=== PATIENT | female | born 1950 | race Caucasian/White ===

== ENCOUNTER 2018-02-10 20:34 | Inpatient (IN) | payer OTHER ==
[~2018-02-10] VITALS: Ht 167.6 cm; Wt 158.0 kg
[2018-02-10] MEDS ORDERED: VANCOMYCIN 1GM ED/ASU OMNICELL IV STA (20:59)
[2018-02-10] MEDS ORDERED: PIPERACILLIN/TAZOBACTAM 4.5 GM/100ML D5W IV STA (20:59)
[2018-02-10] MEDS ORDERED: SODIUM CHLORIDE 0.9% 1000ML 1,000 ML IV ONE (20:59)
--- NOTE | 2018-02-10 21:20 | EMERGENCY ROOM VISIT NOTE ---
History Report prepared by Franco: Lauren Del Rosario Under the Supervision of: Dr. Richardson Smith M.D. First contact with patient: 20:56 Chief Complaint: SHORTNESS OF BREATH Stated Complaint: sob, tachy chemo, anxious History of Present Illness The patient is a 67 year old black female with a past medical history of multiple myeloma, diabetes, pulmonary hypertension, PE on Xarelto who presents to the ED with a cc of persistent SOB beginning [employer]OUND[employer]IN[employer]. The patient presents to the ED by EMS. Positive vomiting, diaphoresis. Negative chest pain, cough, fever , chills. Patient was recently started on a new chemo drug. 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 A total of ten systems were reviewed and were otherwise negative. Past Medical & Surgical Medical Problems: (1) Chills (2) Diabetes (3) Multiple myeloma (4) Pulmonary embolism (5) Pulmonary hypertension (6) SOB (shortness of breath) Family History No pertinent family history stated. Social History Occupation Status: disabled Current/Historical Medications Scheduled Albuterol Hfa (Ventolin Hfa), 2-4 PUFFS INH Q6H Amlodipine (Norvasc), 5 MG PO DAILY Apixaban (Eliquis), 5 MG PO BID Bumetanide (Bumex), 2 MG PO BID Calcium Carbonate-Vitamin D (Calcium Plus Vitamin D), 1 CAP PO BID Dexamethasone (Decadron), 28 MG PO UD Elotuzumab (Empliciti), 1 DOSE IV UD Esomeprazole Magnesium (Nexium), 40 MG PO DAILY Ferrous Sulfate (Kp Ferrous Sulfate), 1 TAB PO TID Glipizide (Glipizide), 1 TAB PO DAILY Latanoprost (Xalatan 0.005% Oph Karen), 1 DROPS OP HS Lenalidomide (Revlimid), 25 MG PO UD Levothyroxine Sodium (Levothyroxine Sodium), 1 TAB PO DAILY Metolazone (Zaroxolyn), 2.5 MG PO DAILY Metoprolol Tartrate (Lopressor) (Lopressor), 25 MG PO BID Multiple Vitamins W/ Minerals (Womens 50+ Multi Vitamin), 1 TAB PO DAILY Potassium Ext Rel (Klor-Con), 20 MEQ PO BID Spironolactone (Aldactone), 25 MG PO DAILY Trazodone Hcl (Trazodone), 50 MG PO HS Miscellaneous Medications [Treatment Meds] Allergies Coded Allergies: Atorvastatin (Unverified Adverse Reaction, Severe, COUGH, 02/10/18) Lisinopril (Unverified Adverse Reaction, Severe, COUGH, 02/10/18) Physical Exam Vital Signs Date Time Temp Pulse Resp B/P (MAP) Pulse Ox O2 Delivery O2 Flow Rate FiO2 02/10/18 23:05 99 16 98 02/10/18 23:00 101/81 02/10/18 22:50 99 14 96 02/10/18 22:45 113/82 02/10/18 22:35 99 17 99 02/10/18 22:31 151/71 02/10/18 22:25 Room Air 02/10/18 22:20 99 25 99 02/10/18 22:19 100 26 98 02/10/18 22:17 108 02/10/18 22:16 163/107 02/10/18 22:11 149/76 02/10/18 21:39 97 Nasal Cannula 6.0 02/10/18 20:49 36.6 136 28 97/80 97 Nasal Cannula 6.0 Physical Exam GENERAL: Awake, alert, anxious in appearance, moderate distress HENT: Normocephalic, atraumatic. EYES: Normal conjunctiva. Sclera non-icteric. PERRL. No anisocoria. NECK: Supple. No nuchal rigidity. FROM. RESPIRATORY: Decreased breath sounds at the bases b/l, no rhonchi, wheezing, crackles CARDIAC: RRR, no MRG ABDOMEN: Soft, NTND, BS+ MSK: No chest wall TTP, no LE edema NEURO: GCS 15, CN 2-12 intact, moves all 4s on command SKIN: No rash or jaundice noted. Medical Decision & Procedures ER Provider Diagnostic Interpretation: Radiology results as stated below per my review and radiologist interpretation: CHEST ONE VIEW PORTABLE HISTORY: 67 years-old Female Sepsis acute sepsis COMPARISON: None available TECHNIQUE: Portable AP view of the chest FINDINGS: The patient is rotated to the left. Cardiac silhouette is enlarged. Right internal jugular Ctkhps-j-Sxls catheter is noted with distal tip projecting over the expected location of the right atrium. There is no pneumothorax or large pleural effusion. Mild pulmonary vascular congestion without overt pulmonary edema. Linear subsegmental left midlung and left basilar opacities suggest atelectasis. Degenerative changes of the shoulders and spine. IMPRESSION: 1. Cardiomegaly with mild pulmonary vascular congestion. 2. Linear subsegmental lateral left midlung and left basilar opacities suggest atelectasis. The above report was generated using voice recognition software. It may contain grammatical, syntax or spelling errors. Electronically signed by: Tereso Yang M.D. 02/10/2018 10:43 PM Dictated Date/Time: 02/10/2018 10:41 PM Laboratory Results Test 02/10/18 20:59 02/10/18 21:16 02/10/18 21:25 02/10/18 22:48 Creatine Kinase MB Ratio (0-3.0) Neutrophils % (Manual) 85.1 % Lymphocytes % (Manual) 7.9 % Monocytes % (Manual) 3.5 % Eosinophils % (Manual) 0.9 % Metamyelocytes % 2.6 % Neutrophils # (Manual) 9.80 K/uL (1.4-6.5) Total Absolute Neutrophils 9.80 K/uL (1.4-6.5) Lymphocytes # (Manual) 0.91 K/uL (1.2-3.4) Total Absolute Lymphocytes 0.91 K/uL (1.2-3.4) Monocytes # (Manual) 0.40 K/uL (0.11-0.59) Eosinophils # (Manual) 0.10 K/uL (0-0.5) Metamyelocytes # 0.30 K/uL (0-0) Prothrombin Time 10.8 SECONDS (9.0-12.0) Prothromb Time International Ratio 1.0 (0.9-1.1) Activated Partial Thromboplast Time 20.4 SECONDS (21.0-31.0) Partial Thromboplastin Ratio 0.8 Venous Blood pH 7.49 (7.36-7.41) Venous Blood Partial Pressure CO2 33 mmHg (38.0-50.0) Venous Blood Partial Pressure O2 29 mmHg Venous Blood HCO3 24 mmol/L Venous Blood Oxygen Saturation 60.7 % Venous Blood Base Excess 1.5 mEq/L Phosphorus Level 1.8 mg/dl (2.5-4.9) Total Bilirubin 0.4 mg/dl (0.2-1) Aspartate Amino Transf (AST/SGOT) 25 U/L (15-37) Alanine Aminotransferase (ALT/SGPT) 24 U/L (12-78) Alkaline Phosphatase 139 U/L (45-117) Creatine Kinase MB 0.9 ng/ml (0.5-3.6) Pro-B-Type Natriuretic Peptide 2937 pg/ml (0-900) Total Protein 7.1 gm/dl (6.4-8.2) Albumin 2.8 gm/dl (3.4-5.0) Globulin 4.3 gm/dl (2.5-4.0) Albumin/Globulin Ratio 0.6 (0.9-2) Procalcitonin 1.37 ng/ml (0-0.5) Bedside Hemoglobin 12.6 g/dl (12.0-16.0) Bedside Hematocrit 37 % (37-47) Bedside Sodium 140 mEq/L (135-144) Bedside Potassium 3.4 mEq/L (3.3-5.0) Bedside Chloride 100 mEq/L (101-112) Bedside Total CO2 23 mEq/l (24-31) Bedside Blood Urea Nitrogen 31 mg/dl (7-18) Bedside Creatinine 1.8 mg/dl (0.6-1.3) Bedside Glucose (other) 228 mg/dl (70-99) Bedside Ionized Calcium (Amrit) 1.10 mmol/l (1.12-1.32) Urine Color DK YELLOW Urine Appearance CLEAR (CLEAR) Urine pH 5.0 (4.5-7.5) Urine Specific [place] 1.022 (1.000-1.030) Urine Protein 1+ (NEG) Urine Glucose (UA) TRACE (NEG) Urine Ketones NEG (NEG) Urine Occult Blood NEG (NEG) Urine Nitrite POS (NEG) Urine Bilirubin NEG (NEG) Urine Urobilinogen NEG (NEG) Urine Leukocyte Esterase SMALL (NEG) Urine WBC (Auto) 10-30 /hpf (0-5) Urine RBC (Auto) 0-4 /hpf (0-4) Urine Hyaline Casts (Auto) 1-5 /lpf (0-5) Urine Epithelial Cells (Auto) 5-10 /lpf (0-5) Urine Bacteria (Auto) 4+ (NEG) Laboratory results reviewed by me Medications Administered Medications (Trade) Dose Ordered Sig/Tracy Route Start Time Stop Time Status Last Admin Dose Admin Sodium Chloride 1,000 ml @ 999 mls/hr Q1H1M ONCE IV 02/10/18 20:59 02/10/18 21:59 DC 02/10/18 21:06 999 MLS/HR Piperacillin Sod/ Tazobactam Sod (Zosyn Iv) 4.5 gm ONE STAT IV 02/10/18 20:59 02/10/18 21:02 DC 02/10/18 23:05 4.5 GM Magnesium Sulfate 100 ml @ 100 mls/hr NOW STAT IV 02/10/18 22:01 02/10/18 23:00 DC 02/10/18 22:40 100 MLS/HR Potassium Chloride 100 ml @ 100 mls/hr NOW STAT IV 02/10/18 22:04 02/10/18 23:03 DC 02/10/18 22:40 100 MLS/HR Potassium Phosphate 15 mmol/ Sodium Chloride 255 ml @ 88 mls/hr ONE STAT IV 02/10/18 22:06 02/11/18 00:59 DC 02/11/18 00:52 88 MLS/HR ECG Per My Interpretation Indication: SOB/dyspnea Rate (beats per minute): 110 Rhythm: sinus tachycardia Findings: RBBB, T-wave inversion (Anterior, Inferior), left axis deviation, other (wide QRS) Comparison ECG Date: no prior available ED Course 2056: The patient was evaluated in room C2B. A complete history and physical exam was performed. 2152: I reevaluated the patient. She appears better and is feeling better. I discussed the test results and treatment plan with her and family. The patient will be evaluated for further management. 2216: I [facility] the patient's [facility] The patient will be evaluated for further treatment and disposition. Medical Decision Nursing notes reviewed. Ancillary studies and prior records reviewed. The patient is a 67 year old black female with a past medical history of multiple myeloma, diabetes, pulmonary hypertension, PE on Xarelto who presents to the ED with a cc of persistent SOB beginning [employer]ATION [employer]IN[employer]. Differential diagnosis: Etiologies such as viral syndrome, otitis, pharyngitis, pneumonia, influenza, meningitis, urinary tract infection, sepsis, bacteremia, infections, reactive airway disease, pneumothorax, COPD, CHF, cardiac ischemia, pulmonary embolism, musculoskeletal, gastrointestinal, as well as others were entertained. Patient seen and evaluated at bedside. Patient tachy and in distress. Patient w / h/o of MM, DM. POC glucose > 200. Patient on 6Ls O2 maintaining sats > 98%. Patient intermittently answering questions. Always appropriate. Diaphoretic. Port accessed. Blood work obtained including blood/urine clx, Vanc/zosyn BS abx , IVF, VBG, LA, EKG, CXR. Established 18G in RAC via US. Initially POC BMP shows creat of 1.8 and normal bicarb. H/H ok. Daughter arrived at bedside. patient on diuretics and h/o of pulm HTN and PEs on NOAC. Patient EKG shows sinus tach w/ RBBB and TWI anteriorly. Patient denies CP. No prior EKGs for comparison. Additional labs show WBC 11K. Mild thrombocytopenia. IVF stopped after 500 ccs as patient had improvement in both HR and BP. Trop slightly elevated, BNP 2K, and LA > 5. UA pending but dip + for infection. Already given BS abx coverage. VBG shows hyperventilation, no CO2 retention. pH > 7.4. Multiple electrolyte derangements ordered repletement. I discussed case w/ respiratory care practitioner hospitalist to admit patient. Pending further reassessment by hospitalist but likely tele bed. Conveyed that patient feeling improved and VS also improved. ASA deferred at this time as pulm HTN and possible dehydration contributory to RBBB and +trop. Admitted to medicine service. Medication Reconcilliation Current Medication List: was personally reviewed by me Blood Pressure Screening Referred to hospitalist. Consults Time Called: [id number] Consulting Physician: Dr. Nuñez [facility] hospitalist Returned Call: [phone] Discussed the patient's case. The patient will be evaluated for further treatment and disposition. Impression Primary Impression: Pulmonary hypertension Additional Impressions: SOB (shortness of breath) Hypokalemia Hypomagnesemia Hypophosphatemia Elevated troponin Sepsis UTI (urinary tract infection) Critical Care I have personally spent greater than 48 minutes of critical care time in the direct management of this patient. This includes bedside care, interpretation of diagnostic studies, and testing, discussion with consultants, patient, and family members, and other required patient management activities. This 48 minutes is in excess of all separately billable procedures. Scribe Attestation The scribe's documentation has been prepared under my direction and personally reviewed by me in its entirety. I confirm that the note above accurately reflects all work, treatment, procedures, and medical decision making performed by me. Departure Information Dispostion Being Evaluated By Hospitalist Referrals No Doctor, Assigned (PCP) Patient Instructions [facility] Problem Qualifiers Additional Impressions: Sepsis Sepsis type: sepsis due to unspecified organism Qualified Codes: A41.9 - Sepsis, unspecified organism UTI (urinary tract infection) Urinary tract infection type: acute cystitis Hematuria presence: without hematuria Qualified Codes: N30.00 - Acute cystitis without hematuria
[2018-02-10 21:33] LABS: PTT PATIENT 20.4 SECONDS (21.0-31.0)
[2018-02-10 21:37] LABS: ISTAT CREATININE 1.8 mg/dl (0.6-1.3); ISTAT IONIZED CALCIUM 1.1 mmol/l (1.12-1.32); ISTAT POTASSIUM 3.4 mEq/L (3.3-5.0)
[2018-02-10 21:41] LABS: HEMATOCRIT 37.2 % (37-47); HEMOGLOBIN 11.9 g/dL (12.0-16.0); MEAN CELL VOLUME 78.6 fL (80-100); MEAN CORPUSCULAR HEMOGLOBIN 25.2 pg (25-34); RED CELL DISTRIBUTION WIDTH CV 16.9 % (11.5-14.5); RED CELL DISTRIBUTION WIDTH SD 48.4 fL (36.4-46.3); WHITE BLOOD COUNT 11.52 K/uL (4.8-10.8)
[2018-02-10 21:43] LABS: ALBUMIN 2.8 gm/dl (3.4-5.0); ALT/SGPT 24 U/L (12-78); AST/SGOT 25 U/L (15-37); BLOOD UREA NITROGEN 32 mg/dl (7-18); CALCIUM 8.6 mg/dl (8.5-10.1); CARBON DIOXIDE 24 mmol/L (21-32); GLUCOSE 216 mg/dl (70-99); POTASSIUM 3.4 mmol/L (3.5-5.1); SODIUM 140 mmol/L (136-145)
[2018-02-10 21:59] LABS: PLATELET COUNT 85 K/uL (130-400)
[2018-02-10 22:00] LABS: ALKALINE PHOSPHATASE 139 U/L (45-117); CKMB 0.9 ng/ml (0.5-3.6); PHOSPHORUS 1.8 mg/dl (2.5-4.9); TOTAL PROTEIN 7.1 gm/dl (6.4-8.2)
[2018-02-10] MEDS ORDERED: MAGNESIUM SULFATE 1GM / D5W 100 ML IV STA (22:01)
[2018-02-10] MEDS ORDERED: POTASSIUM PHOS 3 MMOL/1 ML INFUSION IV STA (22:01)
[2018-02-10] MEDS ORDERED: POTASSIUM CHLR 10 MEQ / WTR 100 ML IV STA (22:04)
--- NOTE | 2018-02-10 22:44 | DIAGNOSTIC IMAGING REPORT ---
CHEST ONE VIEW PORTABLE HISTORY: 67 years-old Female Sepsis acute sepsis COMPARISON: None available TECHNIQUE: Portable AP view of the chest FINDINGS: The patient is rotated to the left. Cardiac silhouette is enlarged. Right internal jugular Ltywcn-r-Grho catheter is noted with distal tip projecting over the expected location of the right atrium. There is no pneumothorax or large pleural effusion. Mild pulmonary vascular congestion without overt pulmonary edema. Linear subsegmental left midlung and left basilar opacities suggest atelectasis. Degenerative changes of the shoulders and spine. IMPRESSION: 1. Cardiomegaly with mild pulmonary vascular congestion. 2. Linear subsegmental lateral left midlung and left basilar opacities suggest atelectasis. The above report was generated using voice recognition software. It may contain grammatical, syntax or spelling errors. Electronically signed by: Tereso Yang M.D. 02/10/2018 10:43 PM Dictated Date/Time: 02/10/2018 10:41 PM
[2018-02-10] MEDS ORDERED: [UNRECOGNIZED DRUG - REMARK] (22:48)
[2018-02-10] MEDS ORDERED: SPIR25TA PO (22:48)
[2018-02-10] MEDS ORDERED: [UNRECOGNIZED DRUG - CODE] IV (22:48)
[2018-02-10] MEDS ORDERED: APIX1TAB3 PO (22:48)
[2018-02-10] MEDS ORDERED: LATA0.5S OP (22:48)
[2018-02-10] MEDS ORDERED: FERR1TAB13 PO (22:48)
[2018-02-10] MEDS ORDERED: DXM/4 PO (22:48)
[2018-02-10] MEDS ORDERED: LENA20CA PO (22:48)
[2018-02-10] MEDS ORDERED: BUME2TAB3 PO (22:48)
[2018-02-10] MEDS ORDERED: TRAZ50TA35 PO (22:48)
[2018-02-10] MEDS ORDERED: METO2.5T PO (22:48)
[2018-02-10] MEDS ORDERED: NXM/40 PO (22:48)
[2018-02-10] MEDS ORDERED: LEVO25TA5 PO (22:48)
[2018-02-10] MEDS ORDERED: POTA-639 PO (22:48)
[2018-02-10] MEDS ORDERED: VNTHFA/IN INH (22:48)
[2018-02-10] MEDS ORDERED: METO25TA56 PO (22:48)
[2018-02-10] MEDS ORDERED: GLIP10TA10 PO (22:48)
[2018-02-10] MEDS ORDERED: CALCCAP7 PO (22:48)
[2018-02-10] MEDS ORDERED: MULT-602 PO (22:48)
[2018-02-10] MEDS ORDERED: AMLO-110 PO (22:48)
--- NOTE | 2018-02-10 23:14 | History and Physical ---
History & Physical Date & Time of Service: February 10, 2018 at 23:14 Chief Complaint: sob, tachy chemo, anxious Primary Care Physician: No Doctor, Assigned History of Present Illness Source: patient, family, hospital records 67-year-old female with past medical history of multiple myeloma, diabetes, pulmonary hypertension, PE on Xarelto who presents to the ED with a cc of SOB. Daughter at bedside helping with the history. As per daughter patient developed chills with elevated heart rate associated with shortness of breath. Daughter said last time patient had chills was when she had her first chemotherapy that was few weeks ago. Her last chemotherapy for multiple myeloma was on Wednesday. She also complained of urinary frequency and she noted her urine to be cloudy. Also complaint of back pain. In the ER heart rate on presentation was 130s, with low BP and tachypneic. denies any fever, chest pain , dizziness and diarrhea. Past Medical/Surgical History Medical Problems: (1) Chills (2) Diabetes (3) Multiple myeloma (4) Pulmonary embolism (5) Pulmonary hypertension (6) SOB (shortness of breath) Social History Smoking Status: Never Smoker Occupational Status: disabled Allergies Coded Allergies: Atorvastatin (Unverified Adverse Reaction, Severe, COUGH, 02/10/18) Lisinopril (Unverified Adverse Reaction, Severe, COUGH, 02/10/18) Home Medications Scheduled Albuterol Hfa (Ventolin Hfa), 2-4 PUFFS INH Q6H Amlodipine (Norvasc), 5 MG PO DAILY Apixaban (Eliquis), 5 MG PO BID Bumetanide (Bumex), 2 MG PO BID Calcium Carbonate-Vitamin D (Calcium Plus Vitamin D), 1 CAP PO BID Dexamethasone (Decadron), 28 MG PO UD Elotuzumab (Empliciti), 1 DOSE IV UD Esomeprazole Magnesium (Nexium), 40 MG PO DAILY Ferrous Sulfate (Kp Ferrous Sulfate), 1 TAB PO TID Glipizide (Glipizide), 1 TAB PO DAILY Latanoprost (Xalatan 0.005% Oph Karen), 1 DROPS OP HS Lenalidomide (Revlimid), 25 MG PO UD Levothyroxine Sodium (Levothyroxine Sodium), 1 TAB PO DAILY Metolazone (Zaroxolyn), 2.5 MG PO DAILY Metoprolol Tartrate (Lopressor) (Lopressor), 25 MG PO BID Multiple Vitamins W/ Minerals (Womens 50+ Multi Vitamin), 1 TAB PO DAILY Potassium Ext Rel (Klor-Con), 20 MEQ PO BID Spironolactone (Aldactone), 25 MG PO DAILY Trazodone Hcl (Trazodone), 50 MG PO HS Miscellaneous Medications [Treatment Meds] Review of Systems Constitutional: + chills, + fatigue Eyes: No eye pain, No diplopia ENT: + problem reported (sneezing), No sore throat Respiratory: + shortness of breath, + dyspnea on exertion, No cough Cardiovascular: + edema, + palpitations, No chest pain Abdomen: No pain, No nausea, No diarrhea Musculoskeletal: + joint pain, + problem reported (back pain) Genitourinary - Female: + urinary frequency Neurologic: + weakness, + balance problems Endocrine: + fatigue Hematologic / Lymphatic: No night sweats Integumentary: No rash, No itch Physical Exam Vital Signs Date Time Temp Pulse Resp B/P (MAP) Pulse Ox O2 Delivery O2 Flow Rate FiO2 02/10/18 22:25 Room Air 02/10/18 22:19 100 26 98 02/10/18 22:17 108 02/10/18 22:16 163/107 02/10/18 22:11 149/76 02/10/18 21:39 97 Nasal Cannula 6.0 02/10/18 20:49 36.6 136 28 97/80 97 Nasal Cannula 6.0 General Appearance: WD/WN, + mild distress, + obese Head: atraumatic Eyes: EOMI ENT: hearing grossly normal Neck: no JVD, trachea midline Respiratory/Chest: no accessory muscle use, + decreased breath sounds Cardiovascular: no JVD, + tachycardia Abdomen/GI: normal bowel sounds, non tender Back: + pertinent finding (tenderness) Extremities/Musculoskelatal: no calf tenderness, + swelling Neurologic/Psych: alert, oriented x 3 Skin: warm/dry, no rash Diagnostics Laboratory Results Results Past 24 Hours Test 02/10/18 20:55 02/10/18 20:59 02/10/18 21:16 02/10/18 21:25 Range/Units Bedside Glucose 208 70-90 mg/dl Creatine Kinase MB Ratio 0-3.0 White Blood Count 11.52 4.8-10.8 K/uL Red Blood Count 4.73 4.2-5.4 M/uL Hemoglobin 11.9 12.0-16.0 g/dL Hematocrit 37.2 37-47 % Mean Corpuscular Volume 78.6 80-100 fL Mean Corpuscular Hemoglobin 25.2 25-34 pg Mean Corpuscular Hemoglobin Concent 32.0 32-36 g/dl Platelet Count 85 130-400 K/uL RDW Standard Deviation 48.4 36.4-46.3 fL RDW Coefficient of Variation 16.9 11.5-14.5 % Neutrophils % (Manual) 85.1 % Lymphocytes % (Manual) 7.9 % Monocytes % (Manual) 3.5 % Eosinophils % (Manual) 0.9 % Metamyelocytes % 2.6 % Neutrophils # (Manual) 9.80 1.4-6.5 K/uL Total Absolute Neutrophils 9.80 1.4-6.5 K/uL Lymphocytes # (Manual) 0.91 1.2-3.4 K/uL Total Absolute Lymphocytes 0.91 1.2-3.4 K/uL Monocytes # (Manual) 0.40 0.11-0.59 K/uL Eosinophils # (Manual) 0.10 0-0.5 K/uL Metamyelocytes # 0.30 0-0 K/uL Platelet Estimate DECREASED Prothrombin Time 10.8 9.0-12.0 SECONDS Prothromb Time International Ratio 1.0 0.9-1.1 Activated Partial Thromboplast Time 20.4 21.0-31.0 SECONDS Partial Thromboplastin Ratio 0.8 Venous Blood pH 7.49 7.36-7.41 Venous Blood Partial Pressure CO2 33 38.0-50.0 mmHg Venous Blood Partial Pressure O2 29 mmHg Venous Blood HCO3 24 mmol/L Venous Blood Oxygen Saturation 60.7 % Venous Blood Base Excess 1.5 mEq/L Sodium Level 140 136-145 mmol/L Potassium Level 3.4 3.5-5.1 mmol/L Chloride Level 103 98-107 mmol/L Carbon Dioxide Level 24 21-32 mmol/L Anion Gap 13.0 21.0 16-25 mmol/L Blood Urea Nitrogen 32 7-18 mg/dl Creatinine 2.00 0.60-1.20 mg/dl Est Creatinine Clear Calc Drug Dose 41.8 ml/min Estimated GFR () 29.0 Estimated GFR (Non- 25.0 BUN/Creatinine Ratio 15.9 10-20 Random Glucose 216 70-99 mg/dl Lactic Acid Level 5.3 0.4-2.0 mmol/L Calcium Level 8.6 8.5-10.1 mg/dl Phosphorus Level 1.8 2.5-4.9 mg/dl Magnesium Level 1.5 1.8-2.4 mg/dl Total Bilirubin 0.4 0.2-1 mg/dl Aspartate Amino Transf (AST/SGOT) 25 15-37 U/L Alanine Aminotransferase (ALT/SGPT) 24 12-78 U/L Alkaline Phosphatase 139 45-117 U/L Creatine Kinase MB 0.9 0.5-3.6 ng/ml Troponin I 0.117 0-0.045 ng/ml Pro-B-Type Natriuretic Peptide 2937 0-900 pg/ml Total Protein 7.1 6.4-8.2 gm/dl Albumin 2.8 3.4-5.0 gm/dl Globulin 4.3 2.5-4.0 gm/dl Albumin/Globulin Ratio 0.6 0.9-2 Procalcitonin 1.37 0-0.5 ng/ml Bedside Hemoglobin 12.6 12.0-16.0 g/dl Bedside Hematocrit 37 37-47 % Bedside Sodium 140 135-144 mEq/L Bedside Potassium 3.4 3.3-5.0 mEq/L Bedside Chloride 100 101-112 mEq/L Bedside Total CO2 23 24-31 mEq/l Bedside Blood Urea Nitrogen 31 7-18 mg/dl Bedside Creatinine 1.8 0.6-1.3 mg/dl Bedside Glucose (other) 228 70-99 mg/dl Bedside Ionized Calcium (Amrit) 1.10 1.12-1.32 mmol/l Test 02/10/18 22:48 Range/Units Microbiology Results 02/10/18 Blood Culture, Received Pending 02/10/18 Blood Culture, Received Pending Diagnostic Radiology [~ rep ct add3]] CHEST ONE VIEW PORTABLE HISTORY: 67 years-old Female Sepsis acute sepsis COMPARISON: None available TECHNIQUE: Portable AP view of the chest FINDINGS: The patient is rotated to the left. Cardiac silhouette is enlarged. Right internal jugular Tzklli-a-Ipna catheter is noted with distal tip projecting over the expected location of the right atrium. There is no pneumothorax or large pleural effusion. Mild pulmonary vascular congestion without overt pulmonary edema. Linear subsegmental left midlung and left basilar opacities suggest atelectasis. Degenerative changes of the shoulders and spine. IMPRESSION: 1. Cardiomegaly with mild pulmonary vascular congestion. 2. Linear subsegmental lateral left midlung and left basilar opacities suggest atelectasis. The above report was generated using voice recognition software. It may contain grammatical, syntax or spelling errors. Electronically signed by: Tereso Yang M.D. 02/10/2018 10:43 PM Dictated Date/Time: 02/10/2018 10:41 PM Impression Assessment and Plan Urosepsis Present with chills and worsening SOB Meet sepsis criteria on admission with tachycardia, Tachypneic, elevated lactic acid and leukocytosis UA positive for nitrate/leukocyte/bacteria Elevated pro-calcitonin on admission Receive Zosyn and Vanco in the ER Repeat lactic acid Only received 1 L of fluid on admission due to pulmonary vascular congestion seen on CXR We will continue Zosyn and Vanco Check urine culture and blood culture Monitor CBC Worsening Dyspnea On chronic oxygen supplement Chest x-ray show mild pulmonary vascular congestion Continue oxygen supplement DuoNeb treatment No Lasix given due to low BP on admission Multiple myeloma Last chemotherapy was on Wednesday Will hold chemo meds for now due to acute infection Elevated Troponin Mostly demand ischemia related to sepsis EKG showed no significant ST changes. Will trend troponin Will get an echo in a.m. Repeat EKG in am CKD Creatinine on admission 2.00 Unknown creatine baseline As per daughter patient has kidney disease due to the multiple myeloma Avoid nephrotoxic agents Monitor BMP Chronic back pain On Tylenol as needed Will add tramadol for severe pain Hypothyroidism On levothyroxine Check TSH HTN BP was low on admission We will hold amlodipine, spironolactone, bumetanide We will resume BP meds once blood pressure starts to increase Electrolyte imbalance Mag and potassium replaced in the ER Monitor electrolyte History of PE Continue Eliquis Diabetes We will hold glipizide Starting on insulin sliding scale monitor blood sugar DVT px On eliquis CODE STATUS FULL CODE Resuscitation Status VTE Prophylaxis Will order VTE Prophylaxis: Yes
[2018-02-11] VITALS (12 sets, daily range): BP systolic 129–175; BP diastolic 70–86; PULSE 70–110; TEMP 36.6–37.5; O2SAT 91–100; Ht 167.6 cm; Wt 158.0 kg
[2018-02-11] MEDS: POTASSIUM PHOSPHATE INJ 15 MMOL in SODIUM CHLORIDE 0.9% 250ML 250 ML IV STA ×2 (00:04→00:52)
[2018-02-11] MEDS ORDERED: VANCOMYCIN CONSULT ACTIVE PRN (00:45)
[2018-02-11] MEDS ORDERED: PIPERACILL/TAZOBAC CONSULT ACTIVE PRN (00:45)
[2018-02-11] MEDS ORDERED: VANCOMYCIN IV 2,750 MG in SODIUM CHLORIDE 0.9% 500ML 500 ML IV SCH (01:00)
[2018-02-11] MEDS ORDERED: ACETAMINOPHEN 325 MG TAB PO PRN ×2 (02:45→03:15)
[2018-02-11] MEDS: TRAMADOL HCL 50 MG TAB PO PRN ×2 (03:33→18:14)
[2018-02-11 03:51] LABS: MEAN CORPUSCULAR HGB CONC 31.4 g/dl (32-36)
[2018-02-11 04:24] LABS: CALCIUM 8.1 mg/dl (8.5-10.1); CREATININE 1.9 mg/dl (0.60-1.20); POTASSIUM 3.8 mmol/L (3.5-5.1)
[2018-02-11] MEDS: PIPERACILL/TAZOBAC IV 4.5 GM in DEXTROSE 5% 100ML 100 ML IV SCH ×3 (04:29→19:49)
[2018-02-11 04:55] LABS: HEMATOCRIT 33.8 % (37-47); HEMOGLOBIN 10.6 g/dL (12.0-16.0); MEAN CELL VOLUME 78.4 fL (80-100); MEAN CORPUSCULAR HEMOGLOBIN 24.6 pg (25-34); RED CELL DISTRIBUTION WIDTH SD 48.7 fL (36.4-46.3)
[2018-02-11 05:00] LABS: PLATELET COUNT 76 K/uL (130-400)
[2018-02-11] MEDS: LEVOTHYROXINE 25 MCG TAB PO SCH (06:27)
[2018-02-11 07:08] LABS: HEMOGLOBIN A1C 7.8 % (4.5-5.6)
[2018-02-11] MEDS: CEROVITE ADV FORMULA TAB PO SCH (07:54)
[2018-02-11] MEDS: ALBUT/IPRATROP 3MG/0.5MG NEB 3 ML VIAL INH SCH ×4 (07:54→19:02)
[2018-02-11] MEDS: APIXABAN 2.5 MG TAB PO SCH ×2 (07:55→21:24)
[2018-02-11] MEDS: METOPROLOL TARTRATE 25 MG TAB PO SCH ×2 (07:55→21:25)
[2018-02-11] MEDS: FERROUS SULFATE 325 MG TAB PO SCH ×3 (07:55→16:06)
[2018-02-11] MEDS: PANTOprazole SOD 40 MG TAB PO SCH (07:56)
[2018-02-11] MEDS: CALCIUM 600MG + VIT D 400 IU TAB PO SCH ×2 (07:56→16:04)
--- NOTE | 2018-02-11 09:00 | ECHOCARDIOGRAM REPORT ---
*NOTICE TO RECEIVING [facility] This information is strictly Confidential and protected under [place] law. [place] law prohibits you from making any further disclosure of this information unless further disclosure is expressly permitted by the written consent of the person to whom it pertains or is authorized by law. A general authorization for the release of medical or other information is not sufficient for this purpose. Hospital accepts no responsibility if the information is made available to any other person, INCLUDING THE PATIENT. Interpretation Summary * Name: JULIANA SORIA Study Date: 02/11/2018 07:08 AM BP: 147/85 mmHg * Patient Location: C.2T\S\S243\S\1 HR: 110 * : 1950 (M/d/yyyy) Gender: Female Height: 66 in * Age: 67 yrs Ethnicity: [place] Weight: 343 lb * Ordering Physician: Rambo Nuñez * Performed By: Whitney Sierra RDCS * * Reason For Study: ELEVATED TROP * BSA: 2.5 m2 * -- Conclusions -- * Techncially limited study due to patient body habitus. * Normal LV chamber size with mild concentric LVH. * Hyperdynamic LV systolic function, EF >70%. * Grade II diastolic dysfunction. * Poorly visualized valvular structures without significant stenosis or regurgitation by Doppler. Procedure Details * A complete two-dimensional transthoracic echocardiogram was performed (2D, M-mode, Doppler and color flow Doppler). * The study was technically difficult. * There were technical limitations due to patient'sbody habitus * A contrast injection of Definity was performed to improve assessment of LV function. * Contrast was injected into an intravenous site in the central line. * One vial of Definity ultrasound contrast was diluted in normal saline to a total volume of 10 ml. A total of '3' ml of solution was administered during imaging. * Lot # [id number] of Definity utilized for procedure. * Expiration date 01/20. * The attending nurse who injected the contrast agent was SHERRI HUTCHINSON RN. Left Ventricle * The left ventricle is normal in size. * There is mild concentric left ventricular hypertrophy. * Ejection Fraction = >70 %. * The left ventricle is hyperdynamic. * Left ventricular systolic function is normal. * The left ventricular wall motion is normal. Right Ventricle * The right ventricle is not well visualized. Atria * The left atrium is moderately dilated. * Right atrium not well visualized. Mitral Valve * The mitral valve is not well visualized. * There is no mitral valve stenosis. * There is no mitral regurgitation noted. Tricuspid Valve * The tricuspid valve is not well visualized. * There is no tricuspid stenosis. * No tricuspid regurgitation. Aortic Valve * The aortic valve is not well visualized. * No hemodynamically significant valvular aortic stenosis. * There is no significant aortic regurgitation. Pulmonic Valve * The pulmonary valve is not well seen, but the Doppler examination is normal without significant regurgitation or stenosis. Great Vessels * The aortic root is not well visualized. Left Ventricular Diastolic Function * Diastolic dysfunction, Grade II (pseudonormalization pattern). MMode 2D Measurements and Calculations IVSd 2.0 cm IVSs 2.5 cm LVIDd 4.3 cm LVIDs 2.4 cm LVPWd 0.98 cm LVPWs 2.1 cm IVS/LVPW 2.0 FS 44.9 % EDV(Teich) 85.3 ml ESV(Teich) 20.1 ml EF(Teich) 76.4 % EDV(cubed) 82.3 ml ESV(cubed) 13.8 ml EF(cubed) 83.2 % % IVS thick 26.6 % % LVPW thick 109.1 % LV mass(C)d 254.1 grams LV mass(C)dI 101.0 grams/m\S\2 LV mass(C)s 265.9 grams LV mass(C)sI 105.7 grams/m\S\2 SV(Teich) 65.2 ml SI(Teich) 25.9 ml/m\S\2 SV(cubed) 68.5 ml SI(cubed) 27.2 ml/m\S\2 LA dimension 5.0 cm asc Aorta Diam 2.8 cm LVOT diam 2.0 cm LVOT area 3.0 cm\S\2 LVAd ap4 35.7 cm\S\2 LVLd ap4 8.5 cm EDV(MOD-sp4) 128.2 ml EDV(sp4-el) 126.9 ml LVAs ap4 13.6 cm\S\2 LVLs ap4 5.8 cm ESV(MOD-sp4) 27.2 ml ESV(sp4-el) 27.0 ml EF(MOD-sp4) 78.8 % EF(sp4-el) 78.7 % LVAd ap2 24.0 cm\S\2 LVLd ap2 7.9 cm EDV(MOD-sp2) 62.6 ml EDV(sp2-el) 62.0 ml LVAs ap2 10.3 cm\S\2 LVLs ap2 6.3 cm ESV(MOD-sp2) 14.5 ml ESV(sp2-el) 14.3 ml EF(MOD-sp2) 76.8 % EF(sp2-el) 76.9 % LVLd %diff -8.35 % EDV(MOD-bp) 92.5 ml LVLs %diff 7.3 % ESV(MOD-bp) 20.5 ml EF(MOD-bp) 77.9 % SV(MOD-sp4) 101.0 ml SI(MOD-sp4) 40.2 ml/m\S\2 SV(MOD-sp2) 48.1 ml SI(MOD-sp2) 19.1 ml/m\S\2 SV(MOD-bp) 72.1 ml SI(MOD-bp) 28.7 ml/m\S\2 SV(sp4-el) 99.8 ml SI(sp4-el) 39.7 ml/m\S\2 SV(sp2-el) 47.7 ml SI(sp2-el) 19.0 ml/m\S\2 Doppler Measurements and Calculations MV E max moon 39.1 cm/sec MV A max moon 34.8 cm/sec MV E/A 1.1 MV dec time 0.20 sec PA V2 max 60.4 cm/sec PA max PG 1.5 mmHg
--- NOTE | 2018-02-11 09:03 | Pharmacy Progress Note ---
Pharmacy Abx Initial Consult Date of Service February 11, 2018. Pharmacy Dosing Scope Date of Consult: 02/11/18 Consultation requested by: Dr. Nuñez Pharmacy is consulted to initiate Vancomycin and Zosyn IV/PO dosing therapy, order appropriate labs and adjust drug dose/frequency. Subjective The patient is a 67 year old female admitted on February 10, 2018 at 23:13. Objective Height (Feet): 5 Height (Inches): 6.00 Weight (Kilograms): 156.000 (BMI 55.2) Vital Signs (Past 12Hrs) Vital Signs Past 12 Hours Date Time Temp Pulse Resp B/P (MAP) Pulse Ox O2 Delivery O2 Flow Rate FiO2 02/11/18 07:54 77 18 99 Nasal Cannula 2.0 02/11/18 04:00 Nasal Cannula 2.0 02/11/18 03:31 37.0 110 18 147/85 (105) 99 Nasal Cannula 2.0 02/11/18 00:07 37.5 99 24 130/78 96 Nasal Cannula 2.0 02/10/18 23:50 83 16 174/81 98 02/10/18 23:05 99 16 98 02/10/18 23:00 101/81 02/10/18 22:50 99 14 96 02/10/18 22:45 113/82 02/10/18 22:35 99 17 99 02/10/18 22:31 151/71 02/10/18 22:25 Room Air 02/10/18 22:20 99 25 99 02/10/18 22:19 100 26 98 02/10/18 22:17 108 02/10/18 22:16 163/107 02/10/18 22:11 149/76 02/10/18 21:39 97 Nasal Cannula 6.0 02/10/18 20:49 36.6 136 28 97/80 97 Nasal Cannula 6.0 Lab Results (24Hrs) Laboratory Tests (24 Hours) Test 02/10/18 21:16 02/11/18 03:27 Procalcitonin 1.37 ng/ml (0-0.5) H Lactic Acid Level 2.1 mmol/L (0.4-2.0) *H White Blood Count 9.30 K/uL (4.8-10.8) Micro Results Date/Time Source Procedure Growth Status 02/10/18 21:28 Blood Blood Culture Pending Received 02/10/18 21:16 Blood Blood Culture Pending Received 02/10/18 22:48 Urine,Catheterized Urine Culture Pending Received Risk Factors for Resistance * Immunocompromised (chemotherapy) Assessment & Plan Assessment 67 year old female admitted for urosepsis. Patient developed chills with SOB, had urinary frequency with cloudy urine. Meets sepsis criteria on admission with tachycardia, tachypneic, elevated lactic acid level, and leukocytosis. Patient also had elevated procalcitonin level. Pertinent PMH: multiple myeloma on chemotherapy (last chemo 02/07/18), diabetes, CKD per history. Plan Vancomcyin and Zosyn for treatment of Urosepsis Vancomycin IV * Loading dose: 2750 mg (~17.6 mg/kg) * Maintenance dose: 1750 mg IV (~11.2 mg/kg) every 18 hours * Goal trough level for urosepsis : 15 to 20 mcg/mL * Trough level ordered for 02/13/18. Patient will not be at steady state, but earlier level will give clearer picture if drug is accumulating. * A less than traditional dose and/or extended dosing interval has/have been selected due to likelihood of drug accumulation in obese patient/patient with h/ o CKD. Piperacillin/tazobactam * 4.5 g bolus administered over 30 minutes, then 4.5 g IV extended infusion every 8 hours for CrCl greater than 20 mL/min OR every 12 hours for CrCl 20 mL/ min or less and dialysis. * Aggressive dosing selected due to critically ill status/BMI 35 or more/ history of cystic fibrosis. Pharmacy will continue to follow and will adjust dose/frequency as necessary. Thank you.
--- NOTE | 2018-02-11 18:13 | Progress Note ---
Internal Med Progress Note Date of Service: February 11, 2018. Provider Documentation: SUBJECTIVE: denies any sob or cough now afebrile no chills no chest pain or abdominal pain OBJECTIVE: Vital Signs-as noted below Exam: General-alert and oriented. Not in distress ENT-Normal hearing Neck-no neck masses Lungs-cta b/l no wheezing no crackles Heart-s1 and s2 heard regular rate and rhythm no murmurs Abdomen-soft bowel sounds present non tender no distension Extremities-no edema no erythema Neuro-alert and awake 'moves extremities Lab data as noted below. ASSESSMENT & PLAN: Sepsis Urosepsis Presented with chills and worsening SOB presented with tachycardia, Tachypneic, elevated lactic acid and leukocytosis UA positive for nitrate/leukocyte/bacteria Elevated pro-calcitonin on admission On Zosyn and Vanco Repeat lactic acid 2.2 hemodynamics stable f/u cx Worsening Dyspnea On chronic oxygen supplement Chest x-ray showed mild pulmonary vascular congestion To continue oxygen supplement DuoNeb treatment currently asymptomatic. Multiple myeloma Last chemotherapy was on Wednesday f/u with heme/onco on discharge Elevated Troponin Mostly demand ischemia related to sepsis EKG showed no significant ST changes. troponin trending down echo grade 2 diastolic chf. No wall motion abnormality. Chronic diastolic chf will monitor CKD 3/4 Creatinine on admission 2.00 Unknown creatine baseline As per admissions patient has kidney disease due to the multiple myeloma will f/u labs Chronic back pain On Tylenol as needed Will add tramadol for severe pain Hypothyroidism On levothyroxine f/u TSH and t4 levels HTN BP low on admission. holding amlodipine, spironolactone, bumetanide to resume BP meds once blood pressure starts to increase Electrolyte imbalance will monitor History of PE On Eliquis Diabetes Holding glipizide Started on insulin sliding scale monitor blood sugar DVT px On eliquis CODE STATUS FULL CODE DISPOSITION monitor in tele to be determined Vital Signs: Date Time Temp Pulse Resp B/P (MAP) Pulse Ox O2 Delivery O2 Flow Rate FiO2 02/11/18 15:57 Nasal Cannula 2.0 02/11/18 15:25 78 18 95 Nasal Cannula 2.0 02/11/18 15:00 36.7 75 20 172/86 (114) 98 Room Air 02/11/18 11:48 36.8 70 24 154/84 (107) 97 Room Air 02/11/18 11:23 Nasal Cannula 2.0 02/11/18 11:16 73 18 99 Nasal Cannula 2.0 02/11/18 07:54 77 18 99 Nasal Cannula 2.0 02/11/18 07:50 36.6 72 20 129/79 (96) 98 Nasal Cannula 2.0 02/11/18 07:50 98 Nasal Cannula 2.0 02/11/18 04:00 Nasal Cannula 2.0 02/11/18 03:31 37.0 110 18 147/85 (105) 99 Nasal Cannula 2.0 02/11/18 00:07 37.5 99 24 130/78 96 Nasal Cannula 2.0 02/10/18 23:50 83 16 174/81 98 02/10/18 23:05 99 16 98 02/10/18 23:00 101/81 02/10/18 22:50 99 14 96 02/10/18 22:45 113/82 02/10/18 22:35 99 17 99 02/10/18 22:31 151/71 02/10/18 22:25 Room Air 02/10/18 22:20 99 25 99 02/10/18 22:19 100 26 98 02/10/18 22:17 108 02/10/18 22:16 163/107 02/10/18 22:11 149/76 02/10/18 21:39 97 Nasal Cannula 6.0 02/10/18 20:49 36.6 136 28 97/80 97 Nasal Cannula 6.0 Lab Results: Results Past 24 Hours Test 02/10/18 20:55 02/10/18 20:59 02/10/18 21:16 02/10/18 21:25 Range/Units Bedside Glucose 208 70-90 mg/dl Creatine Kinase MB Ratio 0-3.0 White Blood Count 11.52 4.8-10.8 K/uL Red Blood Count 4.73 4.2-5.4 M/uL Hemoglobin 11.9 12.0-16.0 g/dL Hematocrit 37.2 37-47 % Mean Corpuscular Volume 78.6 80-100 fL Mean Corpuscular Hemoglobin 25.2 25-34 pg Mean Corpuscular Hemoglobin Concent 32.0 32-36 g/dl Platelet Count 85 130-400 K/uL RDW Standard Deviation 48.4 36.4-46.3 fL RDW Coefficient of Variation 16.9 11.5-14.5 % Neutrophils % (Manual) 85.1 % Lymphocytes % (Manual) 7.9 % Monocytes % (Manual) 3.5 % Eosinophils % (Manual) 0.9 % Metamyelocytes % 2.6 % Neutrophils # (Manual) 9.80 1.4-6.5 K/uL Total Absolute Neutrophils 9.80 1.4-6.5 K/uL Lymphocytes # (Manual) 0.91 1.2-3.4 K/uL Total Absolute Lymphocytes 0.91 1.2-3.4 K/uL Monocytes # (Manual) 0.40 0.11-0.59 K/uL Eosinophils # (Manual) 0.10 0-0.5 K/uL Metamyelocytes # 0.30 0-0 K/uL Platelet Estimate DECREASED Prothrombin Time 10.8 9.0-12.0 SECONDS Prothromb Time International Ratio 1.0 0.9-1.1 Activated Partial Thromboplast Time 20.4 21.0-31.0 SECONDS Partial Thromboplastin Ratio 0.8 Venous Blood pH 7.49 7.36-7.41 Venous Blood Partial Pressure CO2 33 38.0-50.0 mmHg Venous Blood Partial Pressure O2 29 mmHg Venous Blood HCO3 24 mmol/L Venous Blood Oxygen Saturation 60.7 % Venous Blood Base Excess 1.5 mEq/L Sodium Level 140 136-145 mmol/L Potassium Level 3.4 3.5-5.1 mmol/L Chloride Level 103 98-107 mmol/L Carbon Dioxide Level 24 21-32 mmol/L Anion Gap 13.0 21.0 16-25 mmol/L Blood Urea Nitrogen 32 7-18 mg/dl Creatinine 2.00 0.60-1.20 mg/dl Est Creatinine Clear Calc Drug Dose 41.8 ml/min Estimated GFR () 29.0 Estimated GFR (Non- 25.0 BUN/Creatinine Ratio 15.9 10-20 Random Glucose 216 70-99 mg/dl Lactic Acid Level 5.3 0.4-2.0 mmol/L Calcium Level 8.6 8.5-10.1 mg/dl Phosphorus Level 1.8 2.5-4.9 mg/dl Magnesium Level 1.5 1.8-2.4 mg/dl Total Bilirubin 0.4 0.2-1 mg/dl Aspartate Amino Transf (AST/SGOT) 25 15-37 U/L Alanine Aminotransferase (ALT/SGPT) 24 12-78 U/L Alkaline Phosphatase 139 45-117 U/L Creatine Kinase MB 0.9 0.5-3.6 ng/ml Troponin I 0.117 0-0.045 ng/ml Pro-B-Type Natriuretic Peptide 2937 0-900 pg/ml Total Protein 7.1 6.4-8.2 gm/dl Albumin 2.8 3.4-5.0 gm/dl Globulin 4.3 2.5-4.0 gm/dl Albumin/Globulin Ratio 0.6 0.9-2 Procalcitonin 1.37 0-0.5 ng/ml Bedside Hemoglobin 12.6 12.0-16.0 g/dl Bedside Hematocrit 37 37-47 % Bedside Sodium 140 135-144 mEq/L Bedside Potassium 3.4 3.3-5.0 mEq/L Bedside Chloride 100 101-112 mEq/L Bedside Total CO2 23 24-31 mEq/l Bedside Blood Urea Nitrogen 31 7-18 mg/dl Bedside Creatinine 1.8 0.6-1.3 mg/dl Bedside Glucose (other) 228 70-99 mg/dl Bedside Ionized Calcium (Amrit) 1.10 1.12-1.32 mmol/l Test 02/10/18 22:48 02/11/18 03:27 02/11/18 07:35 02/11/18 11:00 Range/Units Urine Color DK YELLOW Urine Appearance CLEAR CLEAR Urine pH 5.0 4.5-7.5 Urine Specific Barney 1.022 1.000-1.030 Urine Protein 1+ NEG Urine Glucose (UA) TRACE NEG Urine Ketones NEG NEG Urine Occult Blood NEG NEG Urine Nitrite POS NEG Urine Bilirubin NEG NEG Urine Urobilinogen NEG NEG Urine Leukocyte Esterase SMALL NEG Urine WBC (Auto) 10-30 0-5 /hpf Urine RBC (Auto) 0-4 0-4 /hpf Urine Hyaline Casts (Auto) 1-5 0-5 /lpf Urine Epithelial Cells (Auto) 5-10 0-5 /lpf Urine Bacteria (Auto) 4+ NEG White Blood Count 9.30 4.8-10.8 K/uL Red Blood Count 4.31 4.2-5.4 M/uL Hemoglobin 10.6 12.0-16.0 g/dL Hematocrit 33.8 37-47 % Mean Corpuscular Volume 78.4 80-100 fL Mean Corpuscular Hemoglobin 24.6 25-34 pg Mean Corpuscular Hemoglobin Concent 31.4 32-36 g/dl RDW Standard Deviation 48.7 36.4-46.3 fL RDW Coefficient of Variation 17.0 11.5-14.5 % Platelet Count 76 130-400 K/uL Platelet Estimate DECREASED Sodium Level 140 136-145 mmol/L Potassium Level 3.8 3.5-5.1 mmol/L Chloride Level 106 98-107 mmol/L Carbon Dioxide Level 27 21-32 mmol/L Anion Gap 7.0 3-11 mmol/L Blood Urea Nitrogen 32 7-18 mg/dl Creatinine 1.90 0.60-1.20 mg/dl Est Creatinine Clear Calc Drug Dose 43.8 ml/min Estimated GFR () 30.9 Estimated GFR (Non- 26.6 BUN/Creatinine Ratio 16.8 10-20 Random Glucose 223 70-99 mg/dl Estimated Average Glucose 177 mg/dl Hemoglobin A1c 7.8 4.5-5.6 % Lactic Acid Level 2.1 2.2 0.4-2.0 mmol/L Calcium Level 8.1 8.5-10.1 mg/dl Magnesium Level 2.0 1.8-2.4 mg/dl Troponin I 0.521 0.281 0-0.045 ng/ml Thyroid Stimulating Hormone (TSH) 0.247 0.300-4.500 uIu/ml Hepatitis C Antibody Screen NEG NEG Bedside Glucose 153 70-90 mg/dl Test 02/11/18 11:02 02/11/18 16:33 Range/Units Bedside Glucose 188 222 70-90 mg/dl Microbiology Results 02/10/18 Blood Culture, Received Pending 02/10/18 Blood Culture, Received Pending 02/10/18 Urine Culture, Received Pending
[2018-02-11] MEDS: VANCOMYCIN IV 1,750 MG in SODIUM CHLORIDE 0.9% 500ML 500 ML IV SCH (19:50)
[2018-02-11] MEDS: SODIUM CHLORIDE 0.9% 1000ML 1,000 ML IV SCH (21:23)
[2018-02-11] MEDS: TRAZODONE HCL 50 MG TAB PO SCH (21:24)
[2018-02-11] MEDS: LATANOPROST 0.005% OP SOLN 2.5 ML BTL OP SCH (21:24)
[2018-02-12] VITALS (13 sets, daily range): BP systolic 124–170; BP diastolic 65–84; PULSE 65–98; TEMP 36.7–37.8; O2SAT 91–100
[2018-02-12] MEDS: PIPERACILL/TAZOBAC IV 4.5 GM in DEXTROSE 5% 100ML 100 ML IV SCH ×3 (03:57→19:27)
[2018-02-12] MEDS: SODIUM CHLORIDE 0.9% 1000ML 1,000 ML IV SCH (05:08)
[2018-02-12] MEDS: LEVOTHYROXINE 25 MCG TAB PO SCH (06:00)
[2018-02-12] MEDS: ALBUT/IPRATROP 3MG/0.5MG NEB 3 ML VIAL INH SCH ×4 (07:09→19:09)
[2018-02-12 07:13] LABS: BASO ABS # 0.04 K/uL (0-0.2); EOS ABS # 0.29 K/uL (0-0.5); HEMATOCRIT 33.6 % (37-47); HEMOGLOBIN 10.5 g/dL (12.0-16.0); IG# 0.05 K/uL (0.00-0.02); LYMPH % 23.6 %; LYMPH ABS # 0.98 K/uL (1.2-3.4); MEAN CELL VOLUME 78.1 fL (80-100); MEAN CORPUSCULAR HEMOGLOBIN 24.4 pg (25-34); MEAN CORPUSCULAR HGB CONC 31.3 g/dl (32-36); MONO % 0.7 %; MONO ABS # 0.03 K/uL (0.11-0.59); NEUT % 66.5 %; NEUT ABS # 2.76 K/uL (1.4-6.5); PLATELET COUNT 71 K/uL (130-400); RED CELL DISTRIBUTION WIDTH CV 17.4 % (11.5-14.5); RED CELL DISTRIBUTION WIDTH SD 49.6 fL (36.4-46.3); WHITE BLOOD COUNT 4.15 K/uL (4.8-10.8)
[2018-02-12 07:20] LABS: CALCIUM 8.4 mg/dl (8.5-10.1); CREATININE 1.75 mg/dl (0.60-1.20); POTASSIUM 4.2 mmol/L (3.5-5.1)
[2018-02-12] MEDS: FERROUS SULFATE 325 MG TAB PO SCH ×3 (07:30→16:38)
--- NOTE | 2018-02-12 07:49 | DIAGNOSTIC IMAGING REPORT ---
CHEST ONE VIEW PORTABLE HISTORY: 67 years-old Female CONGESTION acute cough and congestion COMPARISON: Chest radiograph 02/10/2018 TECHNIQUE: Portable AP view of the chest FINDINGS: Cardiac silhouette is again enlarged, unchanged. Right internal jugular [id number] catheter is unchanged with distal tip projected over the expected location of the right atrium. Atherosclerosis of the aorta. No pneumothorax or large pleural effusion. Mild pulmonary vascular congestion persists with subsegmental bibasilar opacities. Development of interstitial opacities throughout the right lung. The patient is slightly rotated to the right. Degenerative changes of the shoulders and spine. IMPRESSION: 1. Cardiomegaly and pulmonary vascular congestion with development of interstitial opacities throughout the right lung suspicious for asymmetric pulmonary edema 2. Subsegmental bibasilar opacities favor atelectasis. The above report was generated using voice recognition software. It may contain grammatical, syntax or spelling errors. Electronically signed by: Tereso Yang M.D. 02/12/2018 7:48 AM Dictated Date/Time: 02/12/2018 7:46 AM
[2018-02-12] MEDS: CALCIUM 600MG + VIT D 400 IU TAB PO SCH ×2 (08:03→16:38)
[2018-02-12] MEDS: CEROVITE ADV FORMULA TAB PO SCH (08:03)
[2018-02-12] MEDS: TRAMADOL HCL 50 MG TAB PO PRN (08:03)
[2018-02-12] MEDS: PANTOprazole SOD 40 MG TAB PO SCH (08:03)
[2018-02-12] MEDS: METOPROLOL TARTRATE 25 MG TAB PO SCH ×2 (08:03→21:01)
[2018-02-12] MEDS: APIXABAN 2.5 MG TAB PO SCH ×2 (08:04→21:01)
[2018-02-12] MEDS ORDERED: FUROSEMIDE INJ 40 MG in SYRINGE 0 ML IV ONE (08:30)
--- NOTE | 2018-02-12 10:40 | Progress Note ---
Internal Med Progress Note Date of Service: February 12, 2018. Provider Documentation: SUBJECTIVE: complains of back pain denies chest pain or sob no cough no fevers no nausea eating ok feeling better than yesterday OBJECTIVE: Vital Signs-as noted below Exam: General-alert and oriented. Not in distress ENT-Normal hearing Neck-no neck masses Lungs-cta b/l no wheezing mild bibasilar crackles Heart-s1 and s2 heard regular rate and rhythm no murmurs Abdomen-soft bowel sounds present non tender no distension Extremities-no edema no erythema Neuro-alert and awake 'moves extremities Lab data as noted below. ASSESSMENT & PLAN: Sepsis Urosepsis Presented with chills and worsening SOB presented with tachycardia, Tachypneic, elevated lactic acid and leukocytosis UA positive for nitrate/leukocyte/bacteria Elevated pro-calcitonin on admission On Zosyn and Vanco received fluids lactic acid normalized hemodynamics stable currently urine culture e.coli. await final cx Worsening Dyspnea On chronic oxygen supplement To continue oxygen supplement DuoNeb treatment currently asymptomatic. Multiple myeloma Last chemotherapy was on Wednesday f/u with heme/onco on discharge Elevated Troponin Mostly demand ischemia related to sepsis EKG showed no significant ST changes. troponin trending down echo grade 2 diastolic chf. No wall motion abnormality. Acute on Chronic diastolic chf cxr today asymmetric edema stopped fluids given a dose of iv lasix restart home diuretics soon CKD 3/4 Creatinine on admission 2.00 Unknown creatine baseline As per admissions patient has kidney disease due to the multiple myeloma will f/u labs Thrombocytopenia will monitor Chronic back pain On Tylenol as needed tramadol for severe pain Hypothyroidism On levothyroxine f/u TSH and t4 levels-normal HTN BP low on admission. holding amlodipine, spironolactone, bumetanide to resume BP meds once blood pressure starts to increase- will do in am Electrolyte imbalance will monitor History of PE On Eliquis Diabetes Holding glipizide Started on insulin sliding scale monitor blood sugar DVT px On eliquis CODE STATUS FULL CODE DISPOSITION monitor in tele pt/ot to be determined Vital Signs: Date Time Temp Pulse Resp B/P (MAP) Pulse Ox O2 Delivery O2 Flow Rate FiO2 02/12/18 12:52 36.8 98 18 124/69 (87) 96 02/12/18 11:30 Room Air 02/12/18 11:10 70 18 97 Nasal Cannula 2.0 02/12/18 08:11 37.0 68 18 145/65 (91) 97 02/12/18 08:00 Nasal Cannula 2.0 02/12/18 07:10 65 18 98 Nasal Cannula 2.0 02/12/18 04:00 99 Nasal Cannula 2.0 02/12/18 03:55 36.9 76 18 157/84 (108) 99 Nasal Cannula 2.0 02/12/18 00:01 98 Nasal Cannula 2.0 02/12/18 00:01 36.7 77 20 132/78 (96) 100 Nasal Cannula 2.0 02/11/18 22:50 37.0 76 18 140/70 (93) 100 Nasal Cannula 2.0 02/11/18 20:00 98 Nasal Cannula 2.0 02/11/18 19:45 36.7 85 20 175/80 (111) 98 Nasal Cannula 2.0 02/11/18 19:02 73 20 91 Nasal Cannula 2.0 02/11/18 15:57 Nasal Cannula 2.0 02/11/18 15:25 78 18 95 Nasal Cannula 2.0 02/11/18 15:00 36.7 75 20 172/86 (114) 98 Room Air Lab Results: Results Past 24 Hours Test 02/11/18 16:33 02/11/18 18:21 02/11/18 20:44 02/12/18 06:47 Range/Units Bedside Glucose 222 221 70-90 mg/dl Lactic Acid Level 3.4 1.5 0.4-2.0 mmol/L White Blood Count 4.15 4.8-10.8 K/uL Red Blood Count 4.30 4.2-5.4 M/uL Hemoglobin 10.5 12.0-16.0 g/dL Hematocrit 33.6 37-47 % Mean Corpuscular Volume 78.1 80-100 fL Mean Corpuscular Hemoglobin 24.4 25-34 pg Mean Corpuscular Hemoglobin Concent 31.3 32-36 g/dl Platelet Count 71 130-400 K/uL Neutrophils (%) (Auto) 66.5 % Lymphocytes (%) (Auto) 23.6 % Monocytes (%) (Auto) 0.7 % Eosinophils (%) (Auto) 7.0 % Basophils (%) (Auto) 1.0 % Neutrophils # (Auto) 2.76 1.4-6.5 K/uL Lymphocytes # (Auto) 0.98 1.2-3.4 K/uL Monocytes # (Auto) 0.03 0.11-0.59 K/uL Eosinophils # (Auto) 0.29 0-0.5 K/uL Basophils # (Auto) 0.04 0-0.2 K/uL RDW Standard Deviation 49.6 36.4-46.3 fL RDW Coefficient of Variation 17.4 11.5-14.5 % Immature Granulocyte % (Auto) 1.2 % Immature Granulocyte # (Auto) 0.05 0.00-0.02 K/uL Sodium Level 138 136-145 mmol/L Potassium Level 4.2 3.5-5.1 mmol/L Chloride Level 105 98-107 mmol/L Carbon Dioxide Level 26 21-32 mmol/L Anion Gap 7.0 3-11 mmol/L Blood Urea Nitrogen 26 7-18 mg/dl Creatinine 1.75 0.60-1.20 mg/dl Est Creatinine Clear Calc Drug Dose 48.1 ml/min Estimated GFR () 34.1 Estimated GFR (Non- 29.4 BUN/Creatinine Ratio 14.8 10-20 Random Glucose 160 70-99 mg/dl Calcium Level 8.4 8.5-10.1 mg/dl Magnesium Level 1.8 1.8-2.4 mg/dl Thyroid Stimulating Hormone (TSH) 0.466 0.300-4.500 uIu/ml Free Thyroxine 1.51 0.80-1.60 ng/dl Free Triiodothyronine 2.75 2.30-4.20 pg/ml Test 02/12/18 07:14 02/12/18 11:41 Range/Units Bedside Glucose 156 166 70-90 mg/dl
[2018-02-12] MEDS: VANCOMYCIN IV 1,750 MG in SODIUM CHLORIDE 0.9% 500ML 500 ML IV SCH (15:17)
[2018-02-12] MEDS: TRAZODONE HCL 50 MG TAB PO SCH (21:01)
[2018-02-12] MEDS: LATANOPROST 0.005% OP SOLN 2.5 ML BTL OP SCH (21:01)
[2018-02-13] VITALS (12 sets, daily range): BP systolic 122–158; BP diastolic 60–89; PULSE 67–92; TEMP 36.5–37.3; O2SAT 92–98
[2018-02-13] MEDS: PIPERACILL/TAZOBAC IV 4.5 GM in DEXTROSE 5% 100ML 100 ML IV SCH (04:06)
[2018-02-13] MEDS: LEVOTHYROXINE 25 MCG TAB PO SCH (05:42)
[2018-02-13] MEDS ORDERED: VANCOMYCIN TROUGH ONE (07:30)
[2018-02-13] MEDS: ALBUT/IPRATROP 3MG/0.5MG NEB 3 ML VIAL INH SCH ×4 (07:34→19:01)
[2018-02-13 07:43] LABS: MEAN CORPUSCULAR HGB CONC 31.7 g/dl (32-36)
[2018-02-13 08:12] LABS: CALCIUM 8.1 mg/dl (8.5-10.1); CREATININE 1.78 mg/dl (0.60-1.20); POTASSIUM 3.3 mmol/L (3.5-5.1)
[2018-02-13 08:21] LABS: HEMATOCRIT 32.8 % (37-47); HEMOGLOBIN 10.4 g/dL (12.0-16.0); MEAN CORPUSCULAR HEMOGLOBIN 24.4 pg (25-34); RED CELL DISTRIBUTION WIDTH CV 17.4 % (11.5-14.5); RED CELL DISTRIBUTION WIDTH SD 48.9 fL (36.4-46.3); WHITE BLOOD COUNT 3.73 K/uL (4.8-10.8)
[2018-02-13 08:23] LABS: BASO % 0.5 %; BASO ABS # 0.02 K/uL (0-0.2); EOS ABS # 0.26 K/uL (0-0.5); IG# 0.02 K/uL (0.00-0.02); LYMPH % 33.2 %; LYMPH ABS # 1.24 K/uL (1.2-3.4); MONO % 6.4 %; MONO ABS # 0.24 K/uL (0.11-0.59); NEUT % 52.4 %; NEUT ABS # 1.95 K/uL (1.4-6.5); PLATELET COUNT 60 K/uL (130-400)
[2018-02-13] MEDS: CEROVITE ADV FORMULA TAB PO SCH (08:33)
[2018-02-13] MEDS: CALCIUM 600MG + VIT D 400 IU TAB PO SCH ×2 (08:33→17:25)
[2018-02-13] MEDS: PANTOprazole SOD 40 MG TAB PO SCH (08:33)
[2018-02-13] MEDS: FERROUS SULFATE 325 MG TAB PO SCH ×3 (08:33→17:25)
[2018-02-13] MEDS: APIXABAN 2.5 MG TAB PO SCH ×2 (08:34→20:59)
[2018-02-13] MEDS: METOPROLOL TARTRATE 25 MG TAB PO SCH ×2 (08:34→20:57)
[2018-02-13] MEDS: VANCOMYCIN IV 1,750 MG in SODIUM CHLORIDE 0.9% 500ML 500 ML IV SCH (08:39)
[2018-02-13] MEDS: TRAMADOL HCL 50 MG TAB PO PRN (08:41)
[2018-02-13] MEDS ORDERED: LEVOFLOXACIN / D5W 750 MG in PREMIXED IN D5W 150 ML IV SCH (09:45)
[2018-02-13] MEDS ORDERED: CEFTRIAXONE SOD INJ 1 GM in DEXTROSE 5% ADD-VANTAGE 50ML 50 ML IV SCH (10:00)
[2018-02-13] MEDS ORDERED: MAGNESIUM OXIDE 400 MG TAB PO ONE (10:00)
[2018-02-13] MEDS ORDERED: BUMETANIDE 1 MG TAB PO ONE (10:00)
[2018-02-13] MEDS ORDERED: POTASSIUM CHLORIDE 20 MEQ TABCR PO ONE (10:00)
[2018-02-13] MEDS ORDERED: DOXYCYCLINE HYCLATE 100 MG CAP PO ONE (11:00)
[2018-02-13] MEDS ORDERED: MAGNESIUM SULFATE 1GM / D5W 100 ML IV ONE (11:30)
[2018-02-13] MEDS: CEFTRIAXONE SOD INJ 1 GM in DEXTROSE 5% ADD-VANTAGE 50ML 50 ML IV SCH (11:35)
[2018-02-13] MEDS: ALBUTEROL HFA 8 GM INHALER INH SCH ×2 (11:36→17:24)
--- NOTE | 2018-02-13 15:59 | Progress Note ---
Internal Med Progress Note Date of Service: February 13, 2018. Provider Documentation: SUBJECTIVE: resting comfortably denies chest pain or sob has cough with yellow sputum no nausea afebrile OBJECTIVE: Vital Signs-as noted below Exam: General-alert and oriented. Not in distress ENT-Normal hearing Neck-no neck masses Lungs-cta b/l no wheezing mild bibasilar crackles Heart-s1 and s2 heard regular rate and rhythm no murmurs Abdomen-soft bowel sounds present non tender no distension Extremities-no edema no erythema Neuro-alert and awake 'moves extremities Lab data as noted below. ASSESSMENT & PLAN: Sepsis Urosepsis Presented with chills and worsening SOB presented with tachycardia, Tachypneic, elevated lactic acid and leukocytosis UA positive for nitrate/leukocyte/bacteria Elevated pro-calcitonin on admission On Zosyn and Vanco received fluids lactic acid normalized hemodynamics stable currently urine culture e.coli thornton sensitive abx changed to Rocephin tioday Dyspnea On chronic oxygen supplement To continue oxygen supplement DuoNeb treatment currently asymptomatic. Bronchitis/pneumonia cough with yellow sputum Rocephin and doxy will monitor Multiple myeloma Last chemotherapy was on Wednesday f/u with heme/onco on discharge Elevated Troponin Mostly demand ischemia related to sepsis EKG showed no significant ST changes. troponin trending down echo grade 2 diastolic chf. No wall motion abnormality. Acute on Chronic diastolic chf cxr 02/12/18 asymmetric edema stopped fluids received a dose of iv lasix 02/12/18 restarted home diuretics today CKD 3/4 Creatinine on admission 2.00 Unknown creatine baseline As per admissions patient has kidney disease due to the multiple myeloma will f/u labs Thrombocytopenia and leukopenia from multiple myeloma and chemo? will monitor Electrolyte abnormalities will replace Chronic back pain On Tylenol as needed tramadol for severe pain Hypothyroidism On levothyroxine f/u TSH and t4 levels-normal HTN BP low on admission. holding amlodipine, spironolactone, bumetanide restarted diuretics today will monitor Electrolyte imbalance will monitor History of PE On Eliquis Diabetes Holding glipizide hba1c 7.8 Started on insulin sliding scale monitor blood sugar DVT px On eliquis CODE STATUS FULL CODE DISPOSITION transfer to medical floor pt/ot possible d/c in am if stable Vital Signs: Date Time Temp Pulse Resp B/P (MAP) Pulse Ox O2 Delivery O2 Flow Rate FiO2 02/13/18 16:00 Room Air 02/13/18 15:00 92 18 94 Room Air 02/13/18 13:48 36.9 76 18 157/65 (95) 98 Nasal Cannula 2.0 02/13/18 12:48 37.3 67 22 97 3.0 02/13/18 12:00 Room Air 02/13/18 12:00 37.3 67 22 130/89 (103) 97 Nasal Cannula 3.0 02/13/18 11:10 88 18 97 Nasal Cannula 2.0 02/13/18 08:23 36.9 76 20 122/83 (96) 92 Room Air 02/13/18 07:34 80 18 97 Room Air 02/13/18 07:30 Room Air 2.0 02/13/18 04:40 37.0 87 20 158/85 (109) 94 Room Air 02/13/18 04:00 Nasal Cannula 02/13/18 00:00 93 Nasal Cannula 02/12/18 23:33 37.8 84 23 147/79 (101) 94 Room Air 02/12/18 20:00 93 Nasal Cannula 02/12/18 19:51 37.5 81 18 170/71 (104) 94 Nasal Cannula 02/12/18 19:10 80 18 91 Room Air Lab Results: Results Past 24 Hours Test 02/12/18 21:00 02/13/18 07:27 02/13/18 07:29 02/13/18 11:14 Range/Units Bedside Glucose 195 145 146 70-90 mg/dl White Blood Count 3.73 4.8-10.8 K/uL Red Blood Count 4.26 4.2-5.4 M/uL Hemoglobin 10.4 12.0-16.0 g/dL Hematocrit 32.8 37-47 % Mean Corpuscular Volume 77.0 80-100 fL Mean Corpuscular Hemoglobin 24.4 25-34 pg Mean Corpuscular Hemoglobin Concent 31.7 32-36 g/dl Platelet Count 60 130-400 K/uL Neutrophils (%) (Auto) 52.4 % Lymphocytes (%) (Auto) 33.2 % Monocytes (%) (Auto) 6.4 % Eosinophils (%) (Auto) 7.0 % Basophils (%) (Auto) 0.5 % Neutrophils # (Auto) 1.95 1.4-6.5 K/uL Lymphocytes # (Auto) 1.24 1.2-3.4 K/uL Monocytes # (Auto) 0.24 0.11-0.59 K/uL Eosinophils # (Auto) 0.26 0-0.5 K/uL Basophils # (Auto) 0.02 0-0.2 K/uL RDW Standard Deviation 48.9 36.4-46.3 fL RDW Coefficient of Variation 17.4 11.5-14.5 % Immature Granulocyte % (Auto) 0.5 % Immature Granulocyte # (Auto) 0.02 0.00-0.02 K/uL Sodium Level 136 136-145 mmol/L Potassium Level 3.3 3.5-5.1 mmol/L Chloride Level 102 98-107 mmol/L Carbon Dioxide Level 25 21-32 mmol/L Anion Gap 9.0 3-11 mmol/L Blood Urea Nitrogen 22 7-18 mg/dl Creatinine 1.78 0.60-1.20 mg/dl Est Creatinine Clear Calc Drug Dose 47.2 ml/min Estimated GFR () 33.4 Estimated GFR (Non- 28.8 BUN/Creatinine Ratio 12.3 10-20 Random Glucose 165 70-99 mg/dl Calcium Level 8.1 8.5-10.1 mg/dl Magnesium Level 1.6 1.8-2.4 mg/dl Vancomycin Level Trough 21.7 SEE COMMENT mcg/ml
[2018-02-13] MEDS: BUMETANIDE 1 MG TAB PO SCH (17:25)
[2018-02-13] MEDS: DOXYCYCLINE HYCLATE 100 MG CAP PO SCH (20:55)
[2018-02-13] MEDS: MAGNESIUM OXIDE 400 MG TAB PO SCH (20:58)
[2018-02-13] MEDS: POTASSIUM CHLORIDE 20 MEQ TABCR PO SCH (20:59)
[2018-02-13] MEDS: TRAZODONE HCL 50 MG TAB PO SCH (21:00)
[2018-02-13] MEDS: LATANOPROST 0.005% OP SOLN 2.5 ML BTL OP SCH (21:00)
[2018-02-14] MEDS: ALBUTEROL HFA 8 GM INHALER INH SCH ×3 (06:20→11:36)
[2018-02-14] MEDS: LEVOTHYROXINE 25 MCG TAB PO SCH (06:20)
[2018-02-14 06:32] LABS: HEMATOCRIT 33.7 % (37-47); HEMOGLOBIN 10.8 g/dL (12.0-16.0); MEAN CELL VOLUME 77.3 fL (80-100); MEAN CORPUSCULAR HEMOGLOBIN 24.8 pg (25-34); RED CELL DISTRIBUTION WIDTH CV 16.9 % (11.5-14.5); RED CELL DISTRIBUTION WIDTH SD 48.3 fL (36.4-46.3); WHITE BLOOD COUNT 3.44 K/uL (4.8-10.8)
[2018-02-14 06:43] LABS: CALCIUM 8.3 mg/dl (8.5-10.1); CREATININE 1.82 mg/dl (0.60-1.20); POTASSIUM 3.5 mmol/L (3.5-5.1)
[2018-02-14] MEDS: ALBUT/IPRATROP 3MG/0.5MG NEB 3 ML VIAL INH SCH ×2 (07:06→11:20)
[2018-02-14 07:16] VITALS: PULSE 72; O2SAT 93
[2018-02-14 07:18] LABS: PLATELET COUNT 58 K/uL (130-400)
[2018-02-14 07:20] VITALS: BP 148/74; PULSE 79; TEMP 36.6; O2SAT 96
[2018-02-14 07:22] LABS: BASO % 1.2 %; BASO ABS # 0.04 K/uL (0-0.2); EOS % 12.5 %; EOS ABS # 0.43 K/uL (0-0.5); IG# 0.01 K/uL (0.00-0.02); LYMPH % 38.4 %; LYMPH ABS # 1.32 K/uL (1.2-3.4); MONO % 4.7 %; MONO ABS # 0.16 K/uL (0.11-0.59); NEUT % 42.9 %; NEUT ABS # 1.48 K/uL (1.4-6.5)
--- NOTE | 2018-02-14 07:23 | DIAGNOSTIC IMAGING REPORT ---
CHEST ONE VIEW PORTABLE HISTORY: 67 years-old Female congestion/infiltrate acute cough and congestion COMPARISON: Chest radiograph 02/12/2018 TECHNIQUE: Portable AP view of the chest FINDINGS: Right internal jugular [id number] catheter is unchanged. Atherosclerosis of the aorta. Moderate cardiomegaly. Linear subsegmental lateral left midlung and left basilar opacities suggest atelectasis. There is no pneumothorax, pleural effusion or overt pulmonary edema. Mild pulmonary vascular congestion with improved aeration of the bilateral lungs from comparison. Degenerative changes of the shoulders and spine. IMPRESSION: 1. Cardiomegaly and mild pulmonary vascular congestion with improved aeration of the bilateral lungs from comparison. 2. Minimal lateral left midlung and left basilar subsegmental atelectasis. The above report was generated using voice recognition software. It may contain grammatical, syntax or spelling errors. Electronically signed by: Tereso Yang M.D. 02/14/2018 7:22 AM Dictated Date/Time: 02/14/2018 7:20 AM
[2018-02-14] MEDS ORDERED: METOLAZONE 2.5 MG TAB PO SCH (08:00)
[2018-02-14] MEDS ORDERED: SPIRONOLACTONE 25 MG TAB PO SCH (08:00)
[2018-02-14] MEDS ORDERED: AMLODIPINE BESYLATE 5 MG TAB PO SCH (08:00)
[2018-02-14] MEDS: TRAMADOL HCL 50 MG TAB PO PRN (08:43)
[2018-02-14] MEDS: POTASSIUM CHLORIDE 20 MEQ TABCR PO SCH (08:44)
[2018-02-14] MEDS: APIXABAN 2.5 MG TAB PO SCH (08:44)
[2018-02-14] MEDS: CALCIUM 600MG + VIT D 400 IU TAB PO SCH (08:44)
[2018-02-14] MEDS: DOXYCYCLINE HYCLATE 100 MG CAP PO SCH (08:45)
[2018-02-14] MEDS: PANTOprazole SOD 40 MG TAB PO SCH (08:45)
[2018-02-14] MEDS: MAGNESIUM OXIDE 400 MG TAB PO SCH (08:45)
[2018-02-14] MEDS: CEROVITE ADV FORMULA TAB PO SCH (08:46)
[2018-02-14] MEDS: FERROUS SULFATE 325 MG TAB PO SCH ×2 (08:46→11:37)
[2018-02-14] MEDS: METOPROLOL TARTRATE 25 MG TAB PO SCH (08:46)
[2018-02-14] MEDS: BUMETANIDE 1 MG TAB PO SCH (08:46)
[2018-02-14 11:20] VITALS: PULSE 76; O2SAT 97
[2018-02-14] MEDS: CEFTRIAXONE SOD INJ 1 GM in DEXTROSE 5% ADD-VANTAGE 50ML 50 ML IV SCH (11:36)
[2018-02-14] MEDS ORDERED: CEFU1TAB36 PO ×2 (13:52→13:54)
[2018-02-14] MEDS ORDERED: LCTX PO (13:52)
[2018-02-14] MEDS ORDERED: DXY100 PO ×2 (13:52→13:54)
--- NOTE | 2018-02-14 13:56 | Discharge Instructions ---
Discharge Instructions Date of Service February 14, 2018. Admission Reason for Admission: Chills, Sob Discharge Discharge Diagnosis / Problem: sepsis, UTI, bronchitis, HYPOMAGNESIA Discharge Goals Goal(s): Decrease discomfort, Improve function Activity Recommendations Activity Limitations: resume your previous activity . Instructions / Follow-Up Instructions / Follow-Up FOLLOWUP WITH FAMILY DOCTOR IN 5-7 DAYS. LAB: BMP WITH MG LEVELS IN 5-7 DAYS AND FOLLOW RESULTS WITH FAMILY DOCTOR CHF INSTRUCTIONS: Call your Primary Care doctor if any of the following symptoms or problems start or get worse: Shortness of breath or difficulty breathing Wake up at night short of breath Chest pain Cough Swelling of your hands, feet, or legs More fatigued or tired with your normal activity Palpitations - sudden fast heart beats WEIGHT Weigh yourself every morning after using the bathroom. Use the same scale. Wear the same amount of clothing. Write your weight down on a chart. Call your Primary Care doctor if you gain more than 2-3 pounds in 1-2 days. MEDICATIONS Use this discharge instruction sheet for medication instructions. Take your medications at the time your doctor ordered. Do not skip a dose of your medicines. If you miss a dose of medicine, take it as soon as possible, but DO NOT DOUBLE A DOSE. Read your medicine information when you get home. Know all of the side effects of your medicine. If in doubt, ask your pharmacist Call your Primary Care doctor's office if you have any side effects. Be sure all of your doctors know what medicine and herbs you take (including cold, flu, and herbal medicine). Take the following with you to your follow-up doctor appointments: Weight Chart Medication List List of questions Do not drink excessive alcohol, beer or wine. Current Hospital Diet Patient's current hospital diet: AHA Diet (Heart Healthy) Discharge Diet Recommended Diet: AHA Diet (Heart Healthy), Diabetes Type 2 Diet Pending Studies Studies pending at discharge: no Laboratory Results Hemoglobin A1c Test 02/11/18 03:27 Range/Units Estimated Average Glucose 177 mg/dl Hemoglobin A1c 7.8 H 4.5-5.6 % Medical Emergencies . Who to Call and When: Medical Emergencies: If at any time you feel your situation is an emergency, please call 911 immediately. . Non-Emergent Contact Non-Emergency issues call your: Primary Care Provider . . "Provider Documentation" section prepared by Darrin Redd. .
[2018-02-14] MEDS ORDERED: MAGN400C2 PO (13:57)
[2018-02-14 14:05] VITALS: BP 148/74; PULSE 76; TEMP 36.6; O2SAT 97
--- NOTE | 2018-02-14 17:29 | Progress Note ---
Internal Med Progress Note Date of Service: February 14, 2018. Provider Documentation: SUBJECTIVE: resting comfortably cough is better denies ob afebrile OT recommends rehab but patient likes to go home with home PT OBJECTIVE: Vital Signs-as noted below Exam: General-alert and oriented. Not in distress ENT-Normal hearing Neck-no neck masses Lungs-cta b/l no wheezing no crackles Heart-s1 and s2 heard regular rate and rhythm no murmurs Abdomen-soft bowel sounds present non tender no distension Extremities-no edema no erythema Neuro-alert and awake 'moves extremities Lab data as noted below. ASSESSMENT & PLAN: Sepsis Urosepsis Presented with chills and worsening SOB presented with tachycardia, Tachypneic, elevated lactic acid and leukocytosis UA positive for nitrate/leukocyte/bacteria Elevated pro-calcitonin on admission On Zosyn and Vanco received fluids lactic acid normalized hemodynamics stable currently urine culture e.coli thornton sensitive stable d/jessica on cefuroxime to complete the course Dyspnea On chronic oxygen supplement To continue oxygen supplement DuoNeb treatment currently asymptomatic. Bronchitis/pneumonia cough with yellow sputum Rocephin and doxy d/jessica on cefuroxime and doxy Multiple myeloma Last chemotherapy was on Wednesday f/u with heme/onco on discharge Elevated Troponin Mostly demand ischemia related to sepsis EKG showed no significant ST changes. troponin trending down echo grade 2 diastolic chf. No wall motion abnormality. Acute on Chronic diastolic chf cxr 02/12/18 asymmetric edema stopped fluids received a dose of iv lasix 02/12/18 restarted home diuretics cxr improved stable CKD 3/4 Creatinine on admission 2.00 Unknown creatine baseline As per admissions patient has kidney disease due to the multiple myeloma cr 1.8 today f/u with pcp Thrombocytopenia and leukopenia from multiple myeloma and chemo? will monitor Electrolyte abnormalities will replace d/jessica home on magnesium supplement f/u labs with pcp Prolonged Qt to avoid qt prolonging drugs Chronic back pain On Tylenol as needed tramadol for severe pain Hypothyroidism On levothyroxine f/u TSH and t4 levels-normal HTN BP low on admission. holding amlodipine, spironolactone, bumetanide restarted diuretics stable History of PE On Eliquis Diabetes Holding glipizide hba1c 7.8 Started on insulin sliding scale monitor blood sugar d/c on home meds DVT px On eliquis CODE STATUS FULL CODE DISPOSITION Discharge home with home health Vital Signs: Date Time Temp Pulse Resp B/P (MAP) Pulse Ox O2 Delivery O2 Flow Rate FiO2 02/14/18 14:05 36.6 76 16 97 Room Air 02/14/18 11:29 Room Air 02/14/18 11:20 76 16 97 Room Air 02/14/18 07:20 36.6 79 18 148/74 (98) 96 02/14/18 07:16 72 16 93 Room Air 02/13/18 23:59 Room Air 02/13/18 23:51 36.5 76 16 150/60 (90) 96 Room Air 02/13/18 20:57 92 131/78 (95) 02/13/18 19:01 83 18 94 Room Air Lab Results: Results Past 24 Hours Test 02/14/18 05:58 Range/Units White Blood Count 3.44 4.8-10.8 K/uL Red Blood Count 4.36 4.2-5.4 M/uL Hemoglobin 10.8 12.0-16.0 g/dL Hematocrit 33.7 37-47 % Mean Corpuscular Volume 77.3 80-100 fL Mean Corpuscular Hemoglobin 24.8 25-34 pg Mean Corpuscular Hemoglobin Concent 32.0 32-36 g/dl Platelet Count 58 130-400 K/uL Neutrophils (%) (Auto) 42.9 % Lymphocytes (%) (Auto) 38.4 % Monocytes (%) (Auto) 4.7 % Eosinophils (%) (Auto) 12.5 % Basophils (%) (Auto) 1.2 % Neutrophils # (Auto) 1.48 1.4-6.5 K/uL Lymphocytes # (Auto) 1.32 1.2-3.4 K/uL Monocytes # (Auto) 0.16 0.11-0.59 K/uL Eosinophils # (Auto) 0.43 0-0.5 K/uL Basophils # (Auto) 0.04 0-0.2 K/uL RDW Standard Deviation 48.3 36.4-46.3 fL RDW Coefficient of Variation 16.9 11.5-14.5 % Immature Granulocyte % (Auto) 0.3 % Immature Granulocyte # (Auto) 0.01 0.00-0.02 K/uL Platelet Estimate DECREASED Sodium Level 139 136-145 mmol/L Potassium Level 3.5 3.5-5.1 mmol/L Chloride Level 104 98-107 mmol/L Carbon Dioxide Level 26 21-32 mmol/L Anion Gap 9.0 3-11 mmol/L Blood Urea Nitrogen 24 7-18 mg/dl Creatinine 1.82 0.60-1.20 mg/dl Est Creatinine Clear Calc Drug Dose 46.1 ml/min Estimated GFR () 32.5 Estimated GFR (Non- 28.0 BUN/Creatinine Ratio 13.2 10-20 Random Glucose 142 70-99 mg/dl Calcium Level 8.3 8.5-10.1 mg/dl Magnesium Level 1.7 1.8-2.4 mg/dl
--- NOTE | 2018-02-14 17:34 | Discharge Summary ---
Discharge Summary Date of Service February 14, 2018. Discharge Summary Admission Date: February 10, 2018 at 23:13 Discharge Date: February 14, 2018 Discharge Disposition: Home with services Principal Diagnosis: SEPSIS UTI BRONCHITIS Secondary Diagnoses/Problems: 1) Chills (2) Diabetes (3) Multiple myeloma (4) Pulmonary embolism (5) Pulmonary hypertension (6) SOB (shortness of breath) Procedures: CXR: 1. Cardiomegaly with mild pulmonary vascular congestion. 2. Linear subsegmental lateral left midlung and left basilar opacities suggest atelectasis. ECHO: Techncially limited study due to patient body habitus. * Normal LV chamber size with mild concentric LVH. * Hyperdynamic LV systolic function, EF >70%. * Grade II diastolic dysfunction. * Poorly visualized valvular structures without significant stenosis or regurgitation by Doppler. Pending Studies/Follow-Up: BMP WITH MG LEVELS IN 5-7 DAYS WITH PCP Medication Reconciliation New Medications: Cefuroxime Axetil (Cefuroxime Axetil) 500 Mg Tab 1 TAB PO BID for 5 Days, #10 TAB Lactobacillus Acidophilus (Lactinex) Tab 2 TAB PO BID for 7 Days, TAB Magnesium Oxide (Magnesium Oxide) 400 Mg Cap 1 CAP PO DAILY for 30 Days, #30 CAP 1 Refill Doxycycline Hyclate (Doxycycline Hyclate) 100 Mg Cap 100 MG PO BID for 5 Days, #10 CAP Continued Medications: Albuterol Hfa (Ventolin Hfa) 200 Puffs/71986 Mcg Aers 2-4 PUFFS INH Q6H, INHALER Amlodipine (Norvasc) 5 Mg Tab 5 MG PO DAILY, TAB Apixaban (Eliquis) 5 Mg Tab 5 MG PO BID, TAB Bumetanide (Bumex) 2 Mg Tab 2 MG PO BID, TAB Calcium Carbonate-Vitamin D (Calcium Plus Vitamin D) 1 Cap Cap 1 CAP PO BID Dexamethasone (Decadron) 4 Mg Tab 28 MG PO UD, TAB TAKEN BETWEEN 3 AND 24 HOURS BEFORE EMPLICITI INFUSION Elotuzumab (Empliciti) 300 Mg Inj 1 DOSE IV UD Esomeprazole Magnesium (Nexium) 40 Mg Cap 40 MG PO DAILY, CAP Ferrous Sulfate (Kp Ferrous Sulfate) 325 Mg Tab 1 TAB PO TID, TAB Glipizide (Glipizide) 10 Mg Tab 1 TAB PO DAILY Latanoprost (Xalatan 0.005% Oph Karen) 0.005 % Karen 1 DROPS OP HS, ML Lenalidomide (Revlimid) 20 Mg Cap 25 MG PO UD Levothyroxine Sodium (Levothyroxine Sodium) 25 Mcg Tab 1 TAB PO DAILY, TAB Metolazone (Zaroxolyn) 2.5 Mg Tab 2.5 MG PO DAILY, TAB Metoprolol Tartrate (Lopressor) (Lopressor) 25 Mg Tab 25 MG PO BID, TAB Multiple Vitamins W/ Minerals (Womens 50+ Multi Vitamin) 1 Tab Tab 1 TAB PO DAILY Potassium Ext Rel (Klor-Con) 20 Meq Tabcr 20 MEQ PO BID, TAB Spironolactone (Aldactone) 25 Mg Tab 25 MG PO DAILY, TAB Trazodone Hcl (Trazodone) 50 Mg Tab 50 MG PO HS, TAB [Treatment Meds] () ACETAMINOPHEN [facility] IRON DEXAMETHASONE BENADRYL ELOTUZUMAB FAMOTIDINE HEPARIN LOCK FLUSH LENALIDOMIDE PROCHLORPERAZINE MALEATE Admission Information HPI (per Admitting provider): 67-year-old female with past medical history of multiple myeloma, diabetes, pulmonary hypertension, PE on Xarelto who presents to the ED with a cc of SOB. Daughter at bedside helping with the history. As per daughter patient developed chills with elevated heart rate associated with shortness of breath. Daughter said last time patient had chills was when she had her first chemotherapy that was few weeks ago. Her last chemotherapy for multiple myeloma was on Wednesday. She also complained of urinary frequency and she noted her urine to be cloudy. Also complaint of back pain. In the ER heart rate on presentation was 130s, with low BP and tachypneic. denies any fever, chest pain , dizziness and diarrhea. Physical Exam (per Admitting): General Appearance: WD/WN, + mild distress, + obese Head: atraumatic Eyes: EOMI ENT: hearing grossly normal Neck: no JVD, trachea midline Respiratory/Chest: no accessory muscle use, + decreased breath sounds Cardiovascular: no JVD, + tachycardia Abdomen/GI: normal bowel sounds, non tender Back: + pertinent finding (tenderness) Extremities/Musculoskelatal: no calf tenderness, + swelling Neurologic/Psych: alert, oriented x 3 Skin: warm/dry, no rash Hospital Course Sepsis Urosepsis Presented with chills and worsening SOB presented with tachycardia, Tachypneic, elevated lactic acid and leukocytosis UA positive for nitrate/leukocyte/bacteria Elevated pro-calcitonin on admission On Zosyn and Vanco received fluids lactic acid normalized hemodynamics stable currently urine culture e.coli thornton sensitive stable d/jessica on cefuroxime to complete the course Dyspnea On chronic oxygen supplement To continue oxygen supplement DuoNeb treatment currently asymptomatic. Bronchitis/pneumonia cough with yellow sputum Rocephin and doxy d/jessica on cefuroxime and doxy Multiple myeloma Last chemotherapy was on Wednesday f/u with heme/onco on discharge Elevated Troponin Mostly demand ischemia related to sepsis EKG showed no significant ST changes. troponin trending down echo grade 2 diastolic chf. No wall motion abnormality. Acute on Chronic diastolic chf cxr 02/12/18 asymmetric edema stopped fluids received a dose of iv lasix 02/12/18 restarted home diuretics cxr improved stable CKD 3/4 Creatinine on admission 2.00 Unknown creatine baseline As per admissions patient has kidney disease due to the multiple myeloma cr 1.8 today f/u with pcp Thrombocytopenia and leukopenia from multiple myeloma and chemo? will monitor Electrolyte abnormalities will replace d/jessica home on magnesium supplement f/u labs with pcp Prolonged Qt to avoid qt prolonging drugs Chronic back pain On Tylenol as needed tramadol for severe pain Hypothyroidism On levothyroxine f/u TSH and t4 levels-normal HTN BP low on admission. holding amlodipine, spironolactone, bumetanide restarted diuretics stable History of PE On Eliquis Diabetes Holding glipizide hba1c 7.8 Started on insulin sliding scale monitor blood sugar d/c on home meds DVT px On eliquis CODE STATUS FULL CODE DISPOSITION Discharge home with home health Total time spent on discharge = 35MINUTES This includes examination of the patient, discharge planning, medication reconciliation, and communication with other providers. Discharge Instructions Discharge Instructions Date of Service February 14, 2018. Admission Reason for Admission: Chills, Sob Discharge Discharge Diagnosis / Problem: sepsis, UTI, bronchitis, HYPOMAGNESIA Discharge Goals Goal(s): Decrease discomfort, Improve function Activity Recommendations Activity Limitations: resume your previous activity . Instructions / Follow-Up Instructions / Follow-Up FOLLOWUP WITH FAMILY DOCTOR IN 5-7 DAYS. LAB: BMP WITH MG LEVELS IN 5-7 DAYS AND FOLLOW RESULTS WITH FAMILY DOCTOR CHF INSTRUCTIONS: Call your Primary Care doctor if any of the following symptoms or problems start or get worse: Shortness of breath or difficulty breathing Wake up at night short of breath Chest pain Cough Swelling of your hands, feet, or legs More fatigued or tired with your normal activity Palpitations - sudden fast heart beats WEIGHT Weigh yourself every morning after using the bathroom. Use the same scale. Wear the same amount of clothing. Write your weight down on a chart. Call your Primary Care doctor if you gain more than 2-3 pounds in 1-2 days. MEDICATIONS Use this discharge instruction sheet for medication instructions. Take your medications at the time your doctor ordered. Do not skip a dose of your medicines. If you miss a dose of medicine, take it as soon as possible, but DO NOT DOUBLE A DOSE. Read your medicine information when you get home. Know all of the side effects of your medicine. If in doubt, ask your pharmacist Call your Primary Care doctor's office if you have any side effects. Be sure all of your doctors know what medicine and herbs you take (including cold, flu, and herbal medicine). Take the following with you to your follow-up doctor appointments: Weight Chart Medication List List of questions Do not drink excessive alcohol, beer or wine. Current Hospital Diet Patient's current hospital diet: AHA Diet (Heart Healthy) Discharge Diet Recommended Diet: AHA Diet (Heart Healthy), Diabetes Type 2 Diet Pending Studies Studies pending at discharge: no Laboratory Results Hemoglobin A1c Test 02/11/18 03:27 Range/Units Estimated Average Glucose 177 mg/dl Hemoglobin A1c 7.8 H 4.5-5.6 % Medical Emergencies . Who to Call and When: Medical Emergencies: If at any time you feel your situation is an emergency, please call 911 immediately. . Non-Emergent Contact Non-Emergency issues call your: Primary Care Provider Additional Copies To Curtis Daily MD
== END 2018-02-14 15:11 | disposition home or self-care (01) | DRG 871 ==
LOC: EDBD 20:34 → C.EDC 20:42 → C.2T 23:13 → ENRESERV 23:36 → C.MS4W 02-13 13:45
PROVIDERS: ADMIT Internal Medicine; ATTEND Internal Medicine
DX: A41.9 Sepsis, unspecified organism (principal); I13.0 Hypertensive heart and chronic kidney disease with heart failure and stage 1 through stage 4 chronic kidney disease, or unspecified chronic kidney disease; I50.33 Acute on chronic diastolic (congestive) heart failure; I50.32 Chronic diastolic (congestive) heart failure; C90.00 Multiple myeloma not having achieved remission; N39.0 Urinary tract infection, site not specified; E11.22 Type 2 diabetes mellitus with diabetic chronic kidney disease; N18.4 Chronic kidney disease, stage 4 (severe); J40 Bronchitis, not specified as acute or chronic; D69.6 Thrombocytopenia, unspecified; I27.20 Pulmonary hypertension, unspecified; M54.9 Dorsalgia, unspecified; G89.29 Other chronic pain; E03.9 Hypothyroidism, unspecified; Z79.01 Long term (current) use of anticoagulants; Z79.899 Other long term (current) drug therapy; Z86.711 Personal history of pulmonary embolism; Z88.8 Allergy status to other drugs, medicaments and biological substances